=== PATIENT | male | born 1930 ===

== ENCOUNTER 2018-09-24 13:43 | Observation (INO) | payer MEDICARE, OTHER ==
[~2018-09-24] VITALS: Ht 172.7 cm; Wt 70.0 kg
--- NOTE | 2018-09-24 13:46 | NUR ---
BONNIE [phone] PT CONSERVATOR
[2018-09-24 15:00] LABS: BASOPHILS % (AUTO) 0.4 % (0-1); EOSINOPHILS % (AUTO) 0.2 % (0-6); HEMATOCRIT 44.6 % (42.0-52.0); HEMOGLOBIN 14.5 g/dl (14.0-17.9); LYMPHOCYTES # (AUTO) 0.8 X10'3 (1.1-4.8); LYMPHOCYTES % (AUTO) 6.2 % (21-51); MEAN CORPUSCULAR HEMOGLOBIN 29.2 PG (27.0-31.0); MEAN CORPUSCULAR HGB CONC 32.4 g/dL (33.0-36.5); MEAN PLATELET VOLUME 7.5 FL (7.4-10.4); MONOCYTES # (AUTO) 0.6 X10'3 (0-0.9); MONOCYTES % (AUTO) 4.3 % (2-12); NEUTROPHILS # (AUTO) 11.9 X10'3 (1.8-7.7); NEUTROPHILS % (AUTO) 88.9 % (42-75); PLATELET COUNT 335 X10'3 (140-440); RED BLOOD COUNT 4.95 X10'6 (4.70-6.10); RED CELL DISTRIBUTION WIDTH 13.8 % (11.5-14.5); WHITE BLOOD COUNT 13.4 X10'3 (4.5-11.0)
[2018-09-24 15:13] LABS: INR 1.1 INR; PARTIAL THROMBOPLASTIN TIME 29 SECONDS (22-32)
[2018-09-24 15:17] LABS: ALANINE AMINOTRANSFERASE 20 U/L (12-78); ALBUMIN/GLOBULIN RATIO 0.6 (1.1-1.5); ALKALINE PHOSPHATASE 103 IU/L (46-116); ANION GAP 13 (8-16); ASPARTATE AMINO TRANSFERASE 23 U/L (10-37); BILIRUBIN,TOTAL 0.3 MG/DL (0.1-1.0); BLOOD UREA NITROGEN 55 MG/DL (7-18); CALCIUM 9.4 MG/DL (8.5-10.1); CHLORIDE 116 MMOL/L (99-107); CREATININE 1.62 MG/DL (0.60-1.10); GLUCOSE 113 MG/DL (70-104); MAGNESIUM 2.6 MG/DL (1.5-2.4); POTASSIUM 3.7 MMOL/L (3.5-5.1); SODIUM 154 MMOL/L (135-145); TOTAL CARBON DIOXIDE 24.9 MMOL/L (24-32); eGFR 40 ML/MIN
[2018-09-24] MEDS ORDERED: ipratropium/albuterol 3ml nebule NEB ONE (16:05)
[2018-09-24] MEDS ORDERED: normal saline 1000ml 1,000 ML IV ONE (16:22)
[2018-09-24] MEDS ORDERED: piperacillin/tazo 3.375gm/50ml 50 ML IV ONE (16:25)
[2018-09-24] MEDS ORDERED: normal saline 1000ML IV soln IVB ONE (16:25)
[2018-09-24] MEDS ORDERED: magnesium Cl slow-release 64mg tablet PO PRN (16:50)
[2018-09-24] MEDS ORDERED: magnesium 4gm in 100ml NS 100 ML IV PRN (16:50)
[2018-09-24] MEDS ORDERED: potassium Cl 20 mEq SR tablet PO PRN ×2 (16:50)
[2018-09-24] MEDS ORDERED: magnesium 2GM in 50ml NS 50 ML IV PRN (16:50)
[2018-09-24] MEDS ORDERED: potassium Cl 40MEQ/NS 500ml 500 ML IV PRN ×2 (16:50)
[2018-09-24] MEDS ORDERED: ondansetron/PF 4mg/2ml inj IV PRN (16:50)
[2018-09-24] MEDS ORDERED: acetaminophen 325mg tablet PO PRN ×2 (16:50)
--- NOTE | 2018-09-24 17:00 | NUR ---
PT WAS IN DIAPER, DIAPER REMOVED. SKIN BREAKDOWN TO BOTH BUTTOCKS, STAGE 2 ON LEFT SIDE. PT VERY COMBATIVE AND USES OBSCENITIES DURING NURSING CARE. 2 STAFF MEMBERS NEEDED FOR CARE
[2018-09-24 17:11] LABS: CLARITY,URINE CLEAR (Clear); COLOR,URINE YELLOW (Yellow); GLUCOSE, URINE NEGATIVE (Neg); KETONES,URINE TRACE mg/dl (Neg); LEUKOCYTE ESTERASE ,URINE NEGATIVE (Neg); NITRITES, URINE NEGATIVE (Neg); OCCULT BLOOD,URINE TRACE-INTACT (Neg); PH,URINE 5.5 (4.8-8.0); PROTEIN,URINE 100 mg/dl (Neg); UA COLLECTION TYPE OTHER
[2018-09-24 17:16] LABS: AMORPHOUS URATES 1+; BACTERIA,URINE NONE SEEN /HPF (Neg); MUCUS STRANDS NONE SEEN /LPF (Neg); RBC,URINE 0-2 /HPF (0-2); SQUAMOUS EPITHELIAL CELL,UR NONE SEEN /LPF (FEW); WBC,URINE NONE SEEN /HPF (0-4)
--- NOTE | 2018-09-24 17:35 | NUR ---
DR CALDERON WAS NOTIFIED OF PT'S SKIN BREAKDOWN, PICTURES WERE TAKEN
[2018-09-24] MEDS: normal saline 1000ml 1,000 ML IV SCH (17:40)
[2018-09-24] MEDS ORDERED: POLY17PO10 PO (17:42)
[2018-09-24] MEDS ORDERED: ALPR-624 PO (17:42)
[2018-09-24] MEDS ORDERED: ACET-75 PO (17:42)
[2018-09-24] MEDS ORDERED: HYDR28.472 TP (17:42)
[2018-09-24] MEDS ORDERED: MIRT15TA8 PO (17:42)
[2018-09-24] MEDS ORDERED: ROBDML PO (17:42)
[2018-09-24] MEDS ORDERED: MULT-955 PO (17:42)
[2018-09-24] MEDS ORDERED: LORA10TA7 PO (17:42)
[2018-09-24] MEDS ORDERED: LEVO50TA8 PO (17:42)
[2018-09-24] MEDS ORDERED: NEOM28.37 TP (17:42)
[2018-09-24] MEDS: docusate sod 100mg capsule PO SCH ×2 (20:00→21:20)
--- NOTE | 2018-09-24 20:36 | NUR ---
PTS IV INFILTRATED, NEW SITE PLACED. PT GETS VERY AGITATED EASILY. HE WILL TAKE HIS FISTS AND HIT.
[2018-09-24] MEDS ORDERED: temazepam 15mg capsule PO PRN (21:00)
[2018-09-24] MEDS: heparin, porcine 5000 units/ml vial SQ SCH (21:09)
--- NOTE | 2018-09-24 21:40 | NUR ---
Patient in room ORTHO 4009B. I have received report from Zaria RODRÍGUEZ in the ER and had the opportunity to ask questions and assume patient care.
[2018-09-24 21:45] VITALS: BP 166/73
--- NOTE | 2018-09-24 21:47 | NUR ---
PATIENT OFFERED FOOD FROM [employer] WITH [employer] IN PLACE WITH TELECOMMUNICATIONS OFFICER. PT UP RIGHT IN BED, AND REFUSED TO TRY FOOD. WITH NURSE, PT AGAIN TRIED TO OFFER FOOD TO PT, WHERE HE REFUSED AND WAS AGITATED WITH MALE TECH. PT WAS WILLING TO ATTEMPT TO TAKE COLACE TABLET. PT UPRIGHT IN BED AND GIVEN TABLET AND SMALL SIP OF WATER. PT THEN COUGHED AND RN ASSISTED PT TO SPIT OUT REMAINDER OF WATER AND TABLET. IN REPORT TO FLOOR NURSE, DISCUSSION OVER PT'S INABLILITY TO EAT OR TAKE PO MEDS PASSED ALONG IN REPORT.
[2018-09-25] MEDS: normal saline 1000ml 1,000 ML IV SCH (00:14)
[2018-09-25] MEDS: dextrose 5%-1/2 normal saline 1,000 ML IV SCH ×3 (01:25→23:02)
--- NOTE | 2018-09-25 06:25 | NUR ---
Problems reprioritized. Patient report given to Lani RODRÍGUEZ, questions answered & plan of care reviewed with .
[2018-09-25 06:38] LABS: BASOPHILS % (AUTO) 0.3 % (0-1); EOSINOPHILS % (AUTO) 0.4 % (0-6); HEMATOCRIT 41.2 % (42.0-52.0); HEMOGLOBIN 13.1 g/dl (14.0-17.9); LYMPHOCYTES # (AUTO) 1.3 X10'3 (1.1-4.8); LYMPHOCYTES % (AUTO) 10.6 % (21-51); MEAN CORPUSCULAR HEMOGLOBIN 29.4 PG (27.0-31.0); MEAN CORPUSCULAR HGB CONC 31.8 g/dL (33.0-36.5); MEAN CORPUSCULAR VOLUME 92.5 FL (78-98); MEAN PLATELET VOLUME 7.7 FL (7.4-10.4); MONOCYTES # (AUTO) 0.5 X10'3 (0-0.9); MONOCYTES % (AUTO) 4.1 % (2-12); NEUTROPHILS # (AUTO) 10.3 X10'3 (1.8-7.7); NEUTROPHILS % (AUTO) 84.6 % (42-75); PLATELET COUNT 301 X10'3 (140-440); RED BLOOD COUNT 4.45 X10'6 (4.70-6.10); WHITE BLOOD COUNT 12.2 X10'3 (4.5-11.0)
--- NOTE | 2018-09-25 06:42 | NUR ---
Patient in room ORTHO 4009. I have received report from Geena Cazares RN and had the opportunity to ask questions and assume patient care.
--- NOTE | 2018-09-25 06:45 | NUR ---
Pt refused to have vital taken @ 0600
[2018-09-25 06:48] LABS: ALBUMIN 2.6 G/DL (3.4-5.0); ANION GAP 12 (8-16); BLOOD UREA NITROGEN 51 MG/DL (7-18); BUN/CREATININE RATIO 30.5 (5.4-32.0); CALCIUM 8.9 MG/DL (8.5-10.1); CHLORIDE 119 MMOL/L (99-107); CREATININE 1.67 MG/DL (0.60-1.10); GLUCOSE 124 MG/DL (70-104); MAGNESIUM 2.3 MG/DL (1.5-2.4); POTASSIUM 3.7 MMOL/L (3.5-5.1); TOTAL CARBON DIOXIDE 25.2 MMOL/L (24-32); eGFR 39 ML/MIN
[2018-09-25 06:51] LABS: SODIUM 156 MMOL/L (135-145)
[2018-09-25] MEDS: heparin, porcine 5000 units/ml vial SQ SCH ×2 (07:44→20:44)
[2018-09-25] MEDS: docusate sod 100mg capsule PO SCH ×2 (08:00→20:43)
[2018-09-25] MEDS: K and/or MAG REPLACEMENT MC SCH (08:00)
[2018-09-25 10:00] VITALS: BP 144/63
--- NOTE | 2018-09-25 12:25 | NUR ---
Nutrition consult re: "dysphagia, wont swallow, pools in mouth". Patient's diet has been changed from regular to [facility] soft with chopped foods and nectar thick liquids. ST has been consulted for BSS. Noted that pt with low [place] of 12, per physical assessment pt with skin tear/pressure area to sacrum, no nutrition intervention warranted at this time. Per physical assessment pt is confused, A/O x1, combative, resistive to care, fatigued, anxious, and with dementia per PMH. Will continue to follow and make recommendations as appropriate. Addendum: 09/25/18 at [address] Amended: Links added.
[2018-09-25] MEDS ORDERED: CefTRIAXone 2gm/D5W 50ml 50 ML IV ONE (17:45)
[2018-09-25 18:00] VITALS: BP 160/62
--- NOTE | 2018-09-25 18:16 | NUR ---
report rec'd from ky Garibay.
--- NOTE | 2018-09-25 18:30 | NUR ---
Patient report given to Jacqueline Abrams
[2018-09-25] MEDS: mirtazapine 15mg tablet PO SCH (20:43)
[2018-09-26 05:00] VITALS: BP 165/66
--- NOTE | 2018-09-26 06:10 | NUR ---
Patient in room ORTHO 4009. I have received report from Jacqueline RODRÍGUEZ and had the opportunity to ask questions and assume patient care.
--- NOTE | 2018-09-26 06:29 | NUR ---
REPORT GIVEN TO ANNE BRIGGS.
[2018-09-26 06:57] LABS: BASOPHILS % (AUTO) 0.3 % (0-1); EOSINOPHILS # (AUTO) 0.2 X10'3 (0-0.9); EOSINOPHILS % (AUTO) 1.6 % (0-6); LYMPHOCYTES # (AUTO) 1.3 X10'3 (1.1-4.8); LYMPHOCYTES % (AUTO) 13.5 % (21-51); MEAN CORPUSCULAR HEMOGLOBIN 29.5 PG (27.0-31.0); MEAN CORPUSCULAR HGB CONC 32.5 g/dL (33.0-36.5); MEAN CORPUSCULAR VOLUME 90.9 FL (78-98); MEAN PLATELET VOLUME 7.9 FL (7.4-10.4); MONOCYTES # (AUTO) 0.5 X10'3 (0-0.9); MONOCYTES % (AUTO) 5.1 % (2-12); NEUTROPHILS # (AUTO) 7.7 X10'3 (1.8-7.7); NEUTROPHILS % (AUTO) 79.5 % (42-75); PLATELET COUNT 299 X10'3 (140-440); RED CELL DISTRIBUTION WIDTH 13.5 % (11.5-14.5); WHITE BLOOD COUNT 9.7 X10'3 (4.5-11.0)
[2018-09-26 07:21] LABS: ALBUMIN 2.5 G/DL (3.4-5.0); ANION GAP 11 (8-16); BLOOD UREA NITROGEN 40 MG/DL (7-18); BUN/CREATININE RATIO 29.2 (5.4-32.0); CALCIUM 8.4 MG/DL (8.5-10.1); CHLORIDE 117 MMOL/L (99-107); CREATININE 1.37 MG/DL (0.60-1.10); GLUCOSE 104 MG/DL (70-104); MAGNESIUM 2.1 MG/DL (1.5-2.4); POTASSIUM 3.6 MMOL/L (3.5-5.1); SODIUM 153 MMOL/L (135-145); TOTAL CARBON DIOXIDE 25.1 MMOL/L (24-32); eGFR 49 ML/MIN
[2018-09-26] MEDS: K and/or MAG REPLACEMENT MC SCH (08:00)
[2018-09-26 10:00] VITALS: BP 166/63
[2018-09-26] MEDS: levoTHYROXINE 25mcg tablet PO SCH (10:20)
[2018-09-26] MEDS: loratadine 10mg tablet PO SCH (10:20)
[2018-09-26] MEDS: docusate sodium 100mg/10ml UD cup PO SCH ×2 (10:20→20:10)
[2018-09-26] MEDS: heparin, porcine 5000 units/ml vial SQ SCH ×2 (10:21→20:10)
--- NOTE | 2018-09-26 11:11 | NUR ---
Dr. Benson in to round on patient.
--- NOTE | 2018-09-26 11:19 | NUR ---
Student documentation: I have reviewed and agree with all interventions, assessments performed and documented by Irasema AVILA. Student Medication Administration: For this medication-pass time frame, all medication were reviewed, dispensed, administered and documented per hospital policy by Irasema AVILA with [facility].
--- NOTE | 2018-09-26 11:57 | NUR ---
DC Tele order received.
[2018-09-26] MEDS: dextrose 5%-1/2 normal saline 1,000 ML IV SCH ×2 (12:59→20:19)
[2018-09-26] MEDS ORDERED: LEVO500T2 PO (14:16)
[2018-09-26] MEDS ORDERED: CefTRIAXone 2gm/D5W 50ml 50 ML IV ONE (14:20)
[2018-09-26 14:40] VITALS: BP 111/49
--- NOTE | 2018-09-26 14:52 | NUR ---
Discharge orders received. IV Abx ordered x1 before patient is discharged. Lives at a care facility, will call for slat pickler when IV Abx is completed and patient is ready for slat pickler.
--- NOTE | 2018-09-26 15:35 | NUR ---
Discharge put on hold until tomorrow, patient is [facility] and unable to get medications until tomorrow. Ride with [employer] has been set up for a fiber picker time of 1130. [facility] has been notified patient will not be coming home tonight but will be home tomorrow around Noon.
--- NOTE | 2018-09-26 15:49 | NUR ---
Photos taken of buttock wound and placed in chart.
[2018-09-26 18:00] VITALS: BP 166/63
--- NOTE | 2018-09-26 18:29 | NUR ---
Problems reprioritized. Patient report given, questions answered & plan of care reviewed with Jacqueline RODRÍGUEZ.
--- NOTE | 2018-09-26 18:46 | NUR ---
Patient in room ORTHO 4009. I have received report from Teodora and had the opportunity to ask questions and assume patient care.
[2018-09-26] MEDS: mirtazapine 15mg tablet PO SCH (20:10)
[2018-09-26 22:00] VITALS: BP 159/58
[2018-09-27 06:00] VITALS: BP 161/83
--- NOTE | 2018-09-27 06:15 | NUR ---
Patient in room ORTHO 4009. I have received report from ANNE Phillips and had the opportunity to ask questions and assume patient care.
--- NOTE | 2018-09-27 06:16 | NUR ---
REPORT GIVEN TO ANNE ANDERSON.
--- NOTE | 2018-09-27 06:30 | NUR ---
Problems reprioritized. Patient report given, questions answered & plan of care reviewed with Jeri.
[2018-09-27] MEDS: docusate sodium 100mg/10ml UD cup PO SCH (08:06)
[2018-09-27] MEDS: levoTHYROXINE 25mcg tablet PO SCH (08:06)
[2018-09-27] MEDS: loratadine 10mg tablet PO SCH (08:06)
[2018-09-27] MEDS: heparin, porcine 5000 units/ml vial SQ SCH (08:07)
--- NOTE | 2018-09-27 10:45 | NUR ---
TC placed [facility] to notify of discharge today at 1100. Staff member answered the phone and informed that there was "No Nurse here to talk to." Informed staff member that I would like to call and give report on this patient, and she again, in broken [place], stated "No one here to talk to." [employer] arrived at 1100 to pick pt up in w/c. Pt not able to transfer safely in w/c as he is bedbound, confused and combative at all times. 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 Spoke with OTONIEL Clemente to inform that no one from [employer] has returned TC. Chyna made phone call and received information that [employer] has r/s for a 1600 pickup time.
--- NOTE | 2018-09-27 16:00 | NUR ---
[facility] via [employer].
== END 2018-09-27 16:07 | disposition home health service (06) ==
LOC: ER 13:44 → ORTHO 4S 16:48
PROVIDERS: ADMIT Internal Medicine; ATTEND Internal Medicine
DX: F03.90 Unspecified dementia, unspecified severity, without behavioral disturbance, psychotic disturbance, mood disturbance, and anxiety (principal); F05 Delirium due to known physiological condition; E86.0 Dehydration; D72.829 Elevated white blood cell count, unspecified; N28.9 Disorder of kidney and ureter, unspecified; I10 Essential (primary) hypertension; F32.9 Major depressive disorder, single episode, unspecified
CPT/HCPCS: 36415; 71045; 80048; 80053; 81001; 83605; 83735; 84145; 85025; 85610; 85730; 87040; 87070; 93005; 94640; 94760; 96361; 96365; 96366; 96367; 96372; 99284; G0378; J0696; J1644; J2543; J7030